=== PATIENT | female | born 1940 | race Caucasian/White ===

== ENCOUNTER 2021-11-12 18:30 | Emergency (ER) | payer OTHER ==
[2021-11-12 19:05] VITALS: BP 153/82; PULSE 77; RESP 16; TEMP 98.9; BMI 18.5
[2021-11-12] MEDS ORDERED: DIPHTH,PERTUSS(ACELL),TET 0.5 ML DISP.SYRIN IM ONE ×2 (19:23→19:30)
== END 2021-11-12 19:40 | disposition home or self-care (01) ==
LOC: FER 18:30
PROC: 3E0234Z Introduction of Serum, Toxoid and Vaccine into Muscle, Percutaneous Approach (ICD-10-PCS; principal; 2021-11-12)
DX: S02.5XXA Fracture of tooth (traumatic), initial encounter for closed fracture (principal); R23.3 Spontaneous ecchymoses; S01.81XA Laceration without foreign body of other part of head, initial encounter; W01.0XXA Fall on same level from slipping, tripping and stumbling without subsequent striking against object, initial encounter
CPT/HCPCS: 90715; 99284-25